=== PATIENT | male | born 1950 | race Caucasian/White ===

== ENCOUNTER 2016-08-10 12:47 | Emergency (ER) | payer BC ==
[2016-08-10] MEDS ORDERED: ASPIRIN 81 MG TAB.CHEW PO ONE (12:59)
[2016-08-10] MEDS ORDERED: ASPIRIN 81 MG TAB.CHEW ONE (13:07)
[2016-08-10 13:25] LABS: Hematocrit 40.8 % (42.0-52.0); Hemoglobin 14.3 gm/dL (13.5-18.0); Mean Cell Volume 92.3 fl (78-100); Mean Corpuscular Hemoglobin 32.4 pg (27-31); Mean Platelet Volume 9.5 fl (6.0-9.5); Neutrophil # 4.6 K/mm3 (1.3-6.0); Neutrophil % 74.8 % (42-75.0); Platelet Count 169 K/mm3 (150-450); Red Blood Count 4.42 M/mm3 (4.7-6.0); Red Cell Distribution Width 14.2 % (11.5-14.0); White Blood Count 6.2 K/mm3 (4.0-10.5)
--- NOTE | 2016-08-10 13:27 | ERNOTE ---
Medical Problem HPI - General Chief Complaint: General Assessment Time Seen by Provider: 08/10/16 13:21 Source: patient Exam Limitations: no limitations - Immun/Allergies/Home Medications Immunizations: IMMUNIZATION HX Immunizations Up to Date Yes History of Influenza Vaccine No Hx Pneumococcal Vaccination No Allergies/Adverse Reactions: Allergies No Known Allergies Allergy (Unverified 08/10/16 13:06) Home Medications: HOME MEDICATIONS Aspirin [Aspir 81] 81 mg PO DAILY 05/05/12 [Last Taken 08/10/16 07:00] Hydrochlorothiazide 50 mg PO DAILY 05/05/12 [Last Taken 08/10/16 07:00] Lovastatin 40 mg PO DAILY 05/05/12 [Last Taken 08/10/16 07:00] Indomethacin 50 mg PO BID 05/09/14 [Last Taken 08/10/16 07:00] Lisinopril [Zestril] 40 mg PO DAILY 05/09/14 [Last Taken 08/10/16 07:00] - History of Present History Narrative: Pt had onset of shortness of breath this am assoc with weakness and diaphoresis. Timing: getting worse Severity: moderate Review of Systems - Review of Systems Constitutional: Present: fatigue, malaise EYE: Present: no symptoms reported ENT: Present: no symptoms reported Respiratory: Present: shortness of breath Cardiology: Absent: chest pain Gastrointestinal/Abdominal: Present: nausea. Absent: vomiting, diarrhea Genitourinary: Present: no symptoms reported Musculoskeletal: Present: no symptoms reported Skin: Present: no symptoms reported Neurological: Present: dizziness/light-headedness, tingling - of left arm that "happens frequently due to shoulder trouble" Endocrine: Present: no symptoms reported Hematologic/Lymphatic: Present: no symptoms reported Psych: Present: no symptoms reported - Patient's Past Medical History Patient History - Medical: No pertinent hx Patient History - Cardiac/Respiratory: Hypertension, Hyperlipidemia Patient History - Cancer: No Hx of Cancer Patient History - Surgical Procedures: Other Patient History - Other: None - Social History Living Situations: home Abuse History: No History of abuse Psych History: No pertinent hx Smoking Status: Never smoker Alcohol Use: none Drug Use: none - Immunizations Immunizations Up to Date: Yes Hx Pneumococcal Vaccination: No History of Influenza Vaccine: No Physical Exam - Physical Exam General Appearance: Present: wd/wn, alert, mild distress Eye Exam: Normal inspection: bilateral Neck: Present: normal inspection, nontender, supple Respiratory: Present: no respiratory distress, normal breath sounds, no accessory muscle use, chest nontender Cardiovascular/Chest: Present: regular rate, rhythm, no murmur, normal peripheral pulses Back Exam: Present: normal inspection, normal range of motion Extremity Exam: Present: normal inspection, normal range of motion, no edema Neurological Exam: Present: alert, oriented, normal mood/affect, no motor/ sensory deficits Skin Exam: Present: normal color, warm/dry Lymphatic Exam: Present: no adenopathy ED Progress - Results and Orders Patient's Lab Results:: I have reviewed the patient's lab results. Results and Orders: Laboratory Tests 08/10/16 08/10/16 08/10/16 13:17 13:17 13:17 WBC 6.2 Hgb 14.3 Hct 40.8 L Plt Count 169 PT 10.0 INR (Anticoag Therapy) 0.96 PTT ([place]) 25.9 Sodium 142 Potassium 3.6 Chloride 103 Carbon Dioxide 20.4 L Anion Gap 22.2 H BUN 17 Creatinine 0.91 Est GFR (Non-Af Amer) 89 Random Glucose 145 H Calcium 9.1 Total Bilirubin 0.7 AST 48 ALT 57 Alkaline Phosphatase 57 Troponin I 0.026 Total Protein 7.8 Albumin 4.1 - Vital Signs Patient's Vital Signs:: I have reviewed the patient's vital signs. Vital Signs: Vital Signs 08/10/16 12:58 Temperature 37.3 C Pulse Rate 84 Respiratory 18 Rate Blood Pressure 171/80 O2 Sat by Pulse 96 Oximetry - EKG EKG read: Interp. by me EKG Comments: Sinus tach at 100 bpm with frequent PVC's no ST or T wave changes - X-Ray X-Ray #1 X-Ray: chest Interpretation: Reviewed by me X-ray Comments: Lower lung peribronchial thickening. No infiltrate or effusion - CT/Ultrasound CT/Ultrasound Narrative: CT HEAD: chronic microvascular disease. No acute mass, hemorrhage or evidence of acute ischemia - Progress/Reassessment Chief Complaint: General Assessment Progress:: Pain free at discharge Progress Note-Subjective: 08/10/16 15:22 Pt states he feels normal again. Discussed HTN with patient and states that he commonly takes his BP medication everyother day. Encouraged him to take his medication daily. Pt expressed understanding Departure - Departure Clinical Impression: Hypertension Qualifiers: Hypertension type: essential hypertension Qualified Code(s): I10 - Essential ( primary) hypertension Disposition: Home Follow Up Needed Condition: Good Instructions: Hypertension, [id number] Additional Instructions: Make sure you take your blood pressure medicine every day. see your regular doctor within 5-7 days. Return to ER if your symptoms return. Referrals: Lola Mckenzie DO [Primary Care Provider] -
[2016-08-10 13:40] LABS: INR 0.96 INR (0.90-1.10); Partial Thrombolplastin Time 25.9 Seconds (24-32)
[2016-08-10 13:44] LABS: Albumin * 4.1 gm/dl (3.4-5.0); Anion Gap 22.2 mmol/L (6.8-13.8); BUN/Creatinine Ratio 18.7 (9.0-21.6); Bilirubin, Total 0.7 mg/dL (0.0-1.1); Ca. Corrected For Albumin 8.7 mg/dL (8.4-10.2); Calcium * 9.1 mg/dL (7.9-10.9); Carbon Dioxide 20.4 mmol/L (24-32.6); Potassium 3.6 mmol/L (3.4-4.6); Total Protein 7.8 gm/dL (6.2-8.2)
[2016-08-10 13:46] LABS: Troponin I 0.026 ng/ml (0.00-0.10)
--- OUTSIDE RECORDS SUMMARY | 2016-08-10 14:10 | XMS REPORT | CCD ---
:1950 Author Name NIRANJAN SHIRLEY Address [address] [facility] Unavailable [place], [place] [id number] Care Team Providers Name Role Phone LETITIA GARCIA Attending Physician Unavailable Vital Signs Unknown or Not Available. Allergies Unknown or Not Available. Procedures Procedure Code Procedure Type Date LIPID PANEL 24815817 SNOMED CT 02/06/2015 TSH PLUS [id number] SNOMED CT 02/06/2015 History of Immunizations Unknown or Not Available. Problems Unknown or Not Available. Results COMPREHENSIVE METABOLIC PANEL - Collect Date/Time: 02/06/2015 06:25 Test Name Code Test Result Test Units Test Ref Range GLUCOSE 111 mg/dL L=74 H=106 SODIUM 138 mmol/L L=136 H=145 POTASSIUM 4.2 mmol/L L=3.5 H=5.1 CHLORIDE 101 mmol/L L=98 H=107 CO2 28 mmol/L L=21 H=32 BUN 24.0 mg/dL L=7.0 H=18.0 CREATININE 1.6 mg/dL L=0.8 H=1.3 BUN/CREAT 15.0 L=7.6 H=21.2 CALCIUM 9.2 mg/dL L=8.6 H=10.1 TOTAL BILI 0.6 mg/dL L=0.2 H=1.0 TOTAL PROTEIN 7.6 g/dL L=6.4 H=8.2 ALBUMIN 4.0 g/dL L=3.4 H=5.0 A/G RATIO 1.1 ALKALINE PHOS 69 IU/L L=50 H=136 AST/SGOT 28 IU/L L=15 H=37 ALT/SGPT 42 IU/L L=12 H=78 ANION GAP 13.5 mmol/L L=7.0 H=16.0 AGE 65 YEARS GFR 46.63 ml/min LIPID PANEL - Collect Date/Time: 02/06/2015 06:25 Test Name Code Test Result Test Units Test Ref Range CHOLESTEROL 2093-3 203 mg/dL L=0 H=200 TRIGLYCERIDES 2571-8 142 mg/dL L=0 H=200 HDL 2085-9 52 mg/dL L=40 H=60 LDL 2089-1 123 mg/dL L=0 H=160 CHOL/HDL 9830-1 3.9 L=0.0 H=6.7 URIC ACID, SERUM OR PLASMA - Collect Date/Time: 02/06/2015 06:25 Test Name Code Test Result Test Units Test Ref Range URIC ACID 8.8 mg/dL L=3.5 H=7.2 PROSTATE-SPECIFIC AG - Collect Date/Time: 02/06/2015 06:25 Test Name Code Test Result Test Units Test Ref Range PSA TOTAL 1.870 ng/mL L=0.000 H=5.400 TSH PLUS - Collect Date/Time: 02/06/2015 06:25 Test Name Code Test Result Test Units Test Ref Range TSH 3016-3 3.063 uIU/ml L=0.360 H=3.740 CBC W/DIFF - Collect Date/Time: 02/06/2015 06:25 Test Name Code Test Result Test Units Test Ref Range WBC 6690-2 6.4 K/uL L=3.2 H=10.0 RBC 789-8 4.42 M/uL L=4.30 H=5.70 HEMOGLOBIN 718-7 14.2 g/dL L=13.6 H=17.1 HEMATOCRIT 40.4 % L=40.0 H=52.0 MCV 91.4 fL L=81.0 H=101 MCH 32.1 PG L=26.0 H=38.0 MCHC 35.1 G/DL L=31.0 H=37.0 RDW-SD 41.9 FL L=37.0 H=54.0 RDW-CV 12.8 % L=11.0 H=16.0 PLATELETS 235 K/UL L=140 H=380 MPV 9.8 FL L=9.0 H=13.0 %GRAN 65.2 % L=0.0 H=75.0 %LYMPH 19.3 % L=0.0 H=50.0 %MONO 10.5 % L=0.0 H=14.0 %EOS 4.1 % L=0.0 H=6.0 %BASO 0.9 % L=0.0 H=1.0 #GRAN 4.15 K/UL L=1.80 H=7.80 #LYMPH 1.23 K/UL L=0.30 H=4.00 #MONO 0.67 K/UL L=0.00 H=0.70 #EOS 0.26 K/UL L=0.00 H=0.40 #BASO 0.06 K/UL L=0.00 H=0.10 SLIDE REVIEWED? NOT INDICATED N/A MANUAL DIFF NOT INDICATED N/A Active Medications Unknown or Not Available. Medications Administered During Visit Unknown or Not Available. Encounters Encounter Diagnosis Diagnosis Code Start Date GOUT NOS 2749 02/06/2015 Social History Smoking Status Code Start Date End Date Never smoker [id number] Patient Decision Aids Unknown or Not Available. Discharge Instructions You were admitted to [facility] on 02/06/2015 with a principal diagnosis of GOUT NOS. You were discharged from [facility] on 02/06/2015. Should you have any questions prior to discharge, please contact a member of your healthcare team. If you have left the hospital and have any questions, please contact your primary care physician. Chief Complaint and Reason For Visit Unknown or Not Available. Function Status Unknown or Not Available. Plan of Care Unknown or Not Available. Referral/Transition of Care Unknown or Not Available.
--- OUTSIDE RECORDS SUMMARY | 2016-08-10 14:10 | XMS REPORT | CCD ---
:1950 Author Name NIRANJAN SHIRLEY Address [address] Unavailable [place], [place] [id number] Care Team Providers Name Role Phone LETITIA GARCIA Attending Physician Unavailable Vital Signs Unknown or Not Available. Allergies Unknown or Not Available. Procedures Procedure Code Procedure Type Date C VASC SCAN ISOTOP FUNCT 9205 ICD-9 CM, Volume 3 11/06/2014 TREADMILL STRESS TEST 8941 ICD-9 CM, Volume 3 11/06/2014 CARDIAC STRESS [id number] SNOMED CT 11/06/2014 NM-SAURABH PERF-MULTI STUDIES-SPECT [id number] SNOMED CT 11/06/2014 History of Immunizations Unknown or Not Available. Problems Unknown or Not Available. Results Unknown or Not Available. Active Medications Unknown or Not Available. Medications Administered During Visit Unknown or Not Available. Encounters Encounter Diagnosis Diagnosis Code Start Date CHEST PAIN NEC 93920 11/06/2014 Social History Smoking Status Code Start Date End Date Never smoker [id number] Patient Decision Aids Unknown or Not Available. Discharge Instructions You were admitted to [facility] on 11/06/2014 with a principal diagnosis of CHEST PAIN NEC. You had the following procedures done:C VASC SCAN ISOTOP FUNCTTREADMILL STRESS TEST You were discharged from [facility] on 11/06/2014. Should you have any questions prior to [...]
--- OUTSIDE RECORDS SUMMARY | 2016-08-10 14:10 | XMS REPORT | CCD ---
:1950 Author Name NIRANJAN SHIRLEY Address [address] [facility] Unavailable [place], [place] [id number] Care Team Providers Name Role Phone LETITIA GARCIA Attending Physician Unavailable Vital Signs Unknown or Not Available. Allergies Unknown or Not Available. Procedures Procedure Code Procedure Type Date C.A.T. SCAN OF THORAX 8741 ICD-9 CM, Volume 3 11/02/2014 CT CHEST-ANGIO [id number] SNOMED CT 11/02/2014 History of Immunizations Unknown or Not Available. Problems Unknown or Not Available. Results COMPREHENSIVE METABOLIC PANEL - Collect Date/Time: 11/02/2014 12:05 Test Name Code Test Result Test Units Test Ref Range GLUCOSE 100 mg/dL L=74 H=106 SODIUM 140 mmol/L L=136 H=145 POTASSIUM 4.0 mmol/L L=3.5 H=5.1 CHLORIDE 103 mmol/L L=98 H=107 CO2 26 mmol/L L=21 H=32 BUN 17.0 mg/dL L=7.0 H=18.0 CREATININE 1.1 mg/dL L=0.8 H=1.3 BUN/CREAT 15.5 L=7.6 H=21.2 CALCIUM 9.1 mg/dL L=8.6 H=10.1 TOTAL BILI 0.4 mg/dL L=0.2 H=1.0 TOTAL PROTEIN 7.9 g/dL L=6.4 H=8.2 ALBUMIN 3.9 g/dL L=3.4 H=5.0 A/G RATIO 1.0 ALKALINE PHOS 71 IU/L L=50 H=136 AST/SGOT 33 IU/L L=15 H=37 ALT/SGPT 48 IU/L L=12 H=78 ANION GAP 14.6 mmol/L L=7.0 H=16.0 AGE 64 YEARS GFR 72.09 ml/min D-DIMER, PLASMA - Collect Date/Time: 11/02/2014 12:05 Test Name Code Test Result Test Units Test Ref Range D-DIMER 1.55 mg/L L=0.00 H=0.50 TROPONIN QUANTITATIVE - Collect Date/Time: 11/02/2014 12:05 Test Name Code Test Result Test Units Test Ref Range TROPONIN I <0.040 ng/mL L=0.000 H=0.060 CBC W/DIFF - Collect Date/Time: 11/02/2014 12:05 Test Name Code Test Result Test Units Test Ref Range WBC 6690-2 8.9 K/uL L=3.2 H=10.0 RBC 789-8 4.42 M/uL L=4.30 H=5.70 HEMOGLOBIN 718-7 14.2 g/dL L=13.6 H=17.1 HEMATOCRIT 40.3 % L=40.0 H=52.0 MCV 91.2 fL L=81.0 H=101 MCH 32.1 PG L=26.0 H=38.0 MCHC 35.2 G/DL L=31.0 H=37.0 RDW-SD 41.2 FL L=37.0 H=54.0 RDW-CV 12.6 % L=11.0 H=16.0 PLATELETS 262 K/UL L=140 H=380 MPV 9.5 FL L=9.0 H=13.0 %GRAN 73.3 % L=0.0 H=75.0 %LYMPH 14.2 % L=0.0 H=50.0 %MONO 10.0 % L=0.0 H=14.0 %EOS 1.6 % L=0.0 H=6.0 %BASO 0.9 % L=0.0 H=1.0 #GRAN 6.55 K/UL L=1.80 H=7.80 #LYMPH 1.27 K/UL L=0.30 H=4.00 #MONO 0.89 K/UL L=0.00 H=0.70 #EOS 0.14 K/UL L=0.00 H=0.40 #BASO 0.08 K/UL L=0.00 H=0.10 SLIDE REVIEWED? NOT INDICATED N/A MANUAL DIFF NOT INDICATED N/A Active Medications Unknown or Not Available. Medications Administered During Visit Unknown or Not Available. Encounters Encounter Diagnosis Diagnosis Code Start Date CHEST PAIN NOS 28715 11/02/2014 Social History Smoking Status Code Start Date End Date Never smoker [id number] Patient Decision Aids Unknown or Not Available. Discharge Instructions You were admitted to [facility] on 11/02/2014 with a principal diagnosis of CHEST PAIN NOS. You had the following procedures done:C.A.T. SCAN OF THORAX You were discharged from [facility] on 11/02/2014. Should you have any questions prior to [...]
[2016-08-10 14:43] VITALS: BP 198/83
== END 2016-08-10 15:29 | disposition home or self-care (01) ==
LOC: ER 12:47
DX: I10 Essential (primary) hypertension (principal); E78.5 Hyperlipidemia, unspecified